=== PATIENT | male | born 1990 | race Caucasian/White ===

== ENCOUNTER 2021-12-20 23:29 | Emergency (ER) | payer SELFPAY ==
[~2021-12-20] VITALS: Ht 157.5 cm; Wt 114.3 kg
[2021-12-20 23:34] VITALS: BP 131/85
--- NOTE | 2021-12-20 23:37 | NUR ---
PATIENT LEFT WITHOUT BEING SEEN BY DR. Fermin. NO FURTHER CARE PROVIDED FOR PATIENT.
== END 2021-12-20 23:37 | disposition left against medical advice (07) ==
LOC: MED 23:29
DX: R06.02 Shortness of breath (principal); Z53.21 Procedure and treatment not carried out due to patient leaving prior to being seen by health care provider